=== PATIENT | male | born 1950 | race Caucasian/White ===

== ENCOUNTER 2025-05-20 09:06 | Emergency (ER) | payer MEDICARE ==
[~2025-05-20] VITALS: Ht 185.4 cm; Wt 90.0 kg
[2025-05-20 09:08] VITALS: TEMP 98.2; O2SAT 98
[2025-05-20] MEDS ORDERED: IBUP-2028 PO (11:28)
[2025-05-20 11:59] VITALS: BP 163/94; PULSE 70; RESP 18; O2SAT 97
== END 2025-05-20 12:00 | disposition home or self-care (01) ==
LOC: ER 09:06
DX: S01.81XA Laceration without foreign body of other part of head, initial encounter (principal); I10 Essential (primary) hypertension; F17.200 Nicotine dependence, unspecified, uncomplicated; X58.XXXA Exposure to other specified factors, initial encounter; Y93.89 Activity, other specified; Y92.89 Other specified places as the place of occurrence of the external cause; Y99.8 Other external cause status
CPT/HCPCS: 70486; 99284